=== PATIENT | female | born 1950 | race Caucasian/White ===

== ENCOUNTER → 2018-08-26 | Outpatient (CLI) | payer MEDICARE ==
--- NOTE | 2018-08-30 08:39 | MM ---
Reason for exam: screening (asymptomatic). Last mammogram was performed 3 years and 6 months ago. History: Patient is postmenopausal. Family history of breast cancer in mother at age 76. Took estrogen for 1 year 6 months beginning at age 45. Took progesterone for 1 year 6 months beginning at age 45. Physical Findings: A clinical breast exam by your physician is recommended on an annual basis and results should be correlated with mammographic findings. MG 3D Screening Mammo W/Cad Bilateral CC and MLO view(s) were taken. Prior study comparison: March 11, 2015, bilateral MG screening mammo w CAD. March 08, 2014, bilateral MG screening mammo w CAD. There are scattered fibroglandular densities. No significant changes when compared with prior studies. ASSESSMENT: Benign, BI-RAD 2 RECOMMENDATION: Routine screening mammogram of both breasts in 1 year.
== END | disposition home or self-care (01) ==
LOC: RADMAMWWP 13:31
PROVIDERS: ATTEND Family Medicine
DX: Z12.31 Encounter for screening mammogram for malignant neoplasm of breast (principal)
CPT/HCPCS: 77063; 77067

== ENCOUNTER → 2023-06-21 | Outpatient (CLI) | payer MEDICARE ==
--- NOTE | 2023-06-22 09:49 | MM ---
Reason for Exam: Screening (asymptomatic). Last mammogram was performed 1 year(s) and 1 month(s) ago. Patient History: Menarche at age 12. First Full-Term at age 19. Postmenopausal. Estrogen for 1 year, 6 months, from age 45 until age 47. Progesterone for 1 year, 6 months, from age 45 until age 47. Mother had breast cancer, age 76. Risk Values: Lia 5 year model risk: 3.3%. NCI Lifetime model risk: 7.9%. Prior Study Comparison: 03/08/2014 Bilateral Screening Mammogram, [facility]. 03/11/2015 Bilateral Screening Mammogram, [facility]. 08/26/2018 Bilateral Screening Mammogram, [facility]. 05/11/2022 Bilateral Screening Mammogram, [facility]. Tissue Density: The breast tissue is almost entirely fat. Findings: Analyzed By CAD. There is no suspicious group of microcalcifications or new suspicious mass. Overall Assessment: Negative, BI-RAD 1 Management: Screening Mammogram of both breasts in [address] [facility] will attempt to contact patient to return for supplemental views and ultrasound if indicated. Patient should continue monthly self-breast exams. A clinical breast exam by your physician is recommended on an annual basis. This exam should not preclude additional follow-up of suspicious palpable abnormalities. Note on Lia scores and lifetime risk: 1. A Lia score greater than 3% is considered moderate risk. If this is the case, consider specialist referral to assess eligibility for a risk reducing agent. 2. If overall lifetime risk for the development of breast cancer is 20% or higher, the patient may qualify for future screening with alternating mammogram and breast MRI. Electronically signed and approved by: Marcos Fylnn DO
== END | disposition home or self-care (01) ==
LOC: RADMAMWWP 15:09
PROVIDERS: ATTEND Family Medicine
DX: Z12.31 Encounter for screening mammogram for malignant neoplasm of breast (principal); Z78.0 Asymptomatic menopausal state; Z80.3 Family history of malignant neoplasm of breast
CPT/HCPCS: 77067

== ENCOUNTER → 2024-02-28 | Outpatient (CLI) | payer MEDICARE | END | disposition home or self-care (01) | LOC: LABWHC1 15:34 | PROVIDERS: ATTEND Obstetrics & Gynecology Obstetrics | DX: N83.209 Unspecified ovarian cyst, unspecified side (principal) | CPT/HCPCS: 36415 ==

== ENCOUNTER → 2024-06-05 | Outpatient (CLI) | payer MEDICARE ==
[2024-06-05 19:04] LABS: Basophils # (A) 0.06 X 10*3/uL (0.00-0.10); Basophils % (A) 0.8 %; Eosinophils # (A) 0.24 X 10*3/uL (0.04-0.35); HCT 44.9 % (37.2-46.3); HGB 15.8 g/dL (12.0-15.0); Lymphocytes # (A) 2.61 X 10*3/uL (0.90-5.00); Lymphocytes % (A) 33.1 %; MCH 35.6 pg (27.0-32.0); MCHC 35.2 g/dL (32.0-37.0); MCV 101.1 FL (80.0-97.0); Mean Platelet Volume 8.5 FL (9.5-12.2); Monocytes # (A) 0.57 X 10*3/uL (0.20-1.00); Monocytes % (A) 7.2 %; NRBC Per 100 WBC 0 X 10*3/uL (0.00-0.01); Neutrophils # (A) 4.38 X 10*3/uL (1.80-7.70); Neutrophils % (A) 55.5 %; Platelet Count 252 X 10*3/uL (140-440); RBC 4.44 X 10*6/uL (4.10-5.20); RDW 12.8 % (11.5-14.5); WBC 7.89 X 10*3/uL (4.50-10.00)
[2024-06-05 19:35] LABS: Blood Urea Nitrogen 6.8 mg/dL (9.0-27.0); Carbon Dioxide 23.9 mmol/L (21.6-31.8); Chloride 102 mmol/L (96-109); Glucose 99 mg/dL (70-110); Potassium 3.8 mmol/L (3.5-5.5); Sodium 137 mmol/L (135-145)
== END | disposition home or self-care (01) ==
LOC: LABPAT 14:42
PROVIDERS: ATTEND Obstetrics & Gynecology Obstetrics
DX: Z01.818 Encounter for other preprocedural examination (principal); I10 Essential (primary) hypertension; N83.209 Unspecified ovarian cyst, unspecified side; Z15.01 Genetic susceptibility to malignant neoplasm of breast
CPT/HCPCS: 80051; 82565; 82947; 84520; 85025; 86850; 86900; 86901; 87086

== ENCOUNTER 2024-06-15 05:33 | Day surgery (SDC) | payer MEDICARE ==
[2024-06-15] MEDS ORDERED: LIDOCAINE 1% (10MG/ML) FOR IV START INTRADERMA PRN (06:13)
[2024-06-15] MEDS: IV FLUID CONTINUATION 1,000 ML IV ONE (06:25)
[2024-06-15] MEDS: LACTATED RINGERS 1,000 ML IV SCH (06:40)
[2024-06-15] MEDS: ONDANSETRON 4 MG/2 ML VIAL IVP ONE (06:48)
[2024-06-15] MEDS: DEXAMETHASONE SOD PHOSPHATE 4 MG/ML 1 ML VIAL IV ONE (06:48)
[2024-06-15] MEDS: MIDAZOLAM 2 MG/2 ML VIAL IV ONE (06:51)
[2024-06-15] MEDS ORDERED: droPERidol 5 MG/2 ML VIAL IVP PRN (07:00)
[2024-06-15] MEDS ORDERED: MIDAZOLAM 2 MG/2 ML VIAL ONE (07:25)
[2024-06-15] MEDS ORDERED: NEOSTIGMINE 1 MG/ML 10 ML VIAL ONE (07:25)
[2024-06-15] MEDS ORDERED: SUCCINYLCHOLINE CHLORIDE 200 MG/10 ML VIAL IV ONE (07:25)
[2024-06-15] MEDS ORDERED: GLYCOPYRROLATE 0.2 MG/ML 2 ML VIAL ONE (07:25)
[2024-06-15] MEDS ORDERED: LIDOCAINE 1% INJ 10MG/ML (20 ML MDV) ONE (07:25)
[2024-06-15] MEDS ORDERED: ROCURONIUM 10 MG/ML (5 ML VIAL) IV ONE (07:25)
[2024-06-15] MEDS ORDERED: PROPOFOL 10 MG/ML 20 ML VIAL IV ONE (07:25)
[2024-06-15] MEDS ORDERED: fentaNYL (PF) 50 MCG/ML 2 ML AMP ONE (07:25)
--- NOTE | 2024-06-15 07:27 | P.ANPRN ---
Procedure Note - Anesthesia - Epidural/Spinal Spinal Time Out Performed: Yes Date of Procedure: 06/15/24 Procedure Start Time: 06:51 Procedure Stop Time: 06:56 Location of Patient: PreOp Indication: Acute Post-Operative Pain, Analgesia, Requested by Surgeon Sedation Type: Sedate with meaningful contact maintained Preparation: Sterile Prep Position: Sitting Catheter: None Needle Guage: 22 Narrative: Duramorph 0.3mg. L3-4 Level Blood Aspirated: No Pain Paresthesia on Injection Noted: No Events: Uneventful and Well Tolerated
[2024-06-15] MEDS: BUPIVACAINE (PF) 0.25% 30 ML VIAL SQ ONE ×2 (08:42)
[2024-06-15] MEDS: LACTATED RINGERS 1,000 ML IV ONE (09:11)
[2024-06-15] MEDS ORDERED: SIMETHICONE 80 MG CHEWABLE PO PRN (10:24)
[2024-06-15] MEDS: HYDROmorphone 0.5 MG/0.5 ML SYRINGE IVP PRN (10:29)
--- NOTE | 2024-06-15 10:34 | P.OP ---
Date of Procedure: 06/15/24 Preoperative Diagnosis: Large right ovarian cyst, BRCA2 carrier Postoperative Diagnosis: Same Procedure(s) Performed: Buttock assist vaginal hysterectomy, bilateral salpingo-oophorectomy, diagnostic cystoscopy, laparoscopic lysis of adhesions Anesthesia: ARIANNEA Adventure Therapist #1: Poppy Marquez Adventure Therapist #2: Batool Jewell Estimated Blood Loss (ml): 10 IV fluids (ml): 1,000 Urine output (ml): 125 Pathology: other (Uterus bilateral fallopian tubes, bilateral ovaries, cervix) Condition: stable Disposition: PACU Indications for Procedure: Enlarged right ovary, vascular appearance, negative ova 1 testing. Known BRCA2 carrier with desire for definitive/risk reducing treatment. Operative Findings: Small appearing uterus, normal-appearing left ovary consistent with menopause, right ovary with 2 simple appearing cyst. Description of Procedure: Patient was taken back to the operating room where general anesthesia was obtained without difficulty by the anesthesia department. She was prepped and draped in the normal sterile fashion in the dorsolithotomy position. A Guillory catheter was placed under sterile technique. A weighted speculum space in the posterior vaginal vault and the anterior lip of the cervix was visualized and grasped with a single-tooth tenaculum. The endocervical canal was then serially dilated and a [employer] uterine manipulator was advanced into the uterus as a means to manipulate the uterus throughout the procedure. The balloon was insufflated with air at the cervical cap was placed snugly against the cervix and all instru ments were removed from the patient's vaginal vault. Attention then turned to the patient's abdomen where approximately 1 fingerbreadth above the umbilicus a small skin incision is made. Through this incision the Veress needle was placed. Once the Veress needle was deemed to be in the appropriate position with a drop of CO2 pressure CO2 insufflation was allowed to occur. At this time an 8 mm trocar and sleeve with the laparoscope in place was placed through the skin incision and toward the pneumoperitoneum. Adhesions were appreciated from the prior appendectomy she had as a child. Additional port sites are placed at 10 cm lateral and 3 cm inferiorly midline port these are operative ports to the da Abigail and placed under direct visualization. The laparoscopic scissors were placed in the left lateral trocar, the filmy omental adhesions were taken down sharply with the laparoscopic scissors. Hemostasis was a appreciated throughout. Once the adhesions were taken down and visualization was adequate the da Abigail was docked in the usual fashion. The right operative arm the monopolar scissors, the left operative arm the bipolar forceps. Attention then turned to the patient's left infundibulopelvic ligament which was elevated coagulated distally approximately and divided. This continued through the broad and toward the round which was visualized coagulated and transected. The bladder flap from the left was then created using sharp and blunt dissection. The right adnexa was elevated simple appearing thin-walled cysts were appreciated, the infundibulopelvic ligament was elevated coagulated and transected. This continued through the broad ligament toward the round which was coagulated and transected. The bladder flap from the right was created using sharp and blunt dissection. The a centimeter to the uterine artery from the right was visualized coagulated and transected. Hemostasis was appreciated. This was then repeated on the opposite side. At this time the only remaining attachment was a vaginal attachment therefore colpotomy incision was made in a circumferential fashion. The uterus bilateral fallopian tubes bilateral ovaries and right ovarian cyst were delivered through the vaginal opening. The pelvis was then irrigated and hemostasis was noted along the vaginal cuff. The vaginal cuff is closed with 0 Vicryl in a [id number] fashion. 4 sutures were used to obtain closure. The cuff was inspected found to be hemostatic. Both ureters were noted be pulsating in normal fashion nondilated during the procedure. Guillory catheter had been draining clear yellow urine throughout. All instruments were then removed from the patient's abdomen. The da Abigail was undocked in the usual fashion. Attention was then turned to the patient's Guillory catheter once again noting clear yellow urine, it was removed without difficulty and a cystoscopy was performed. The cystoscope was placed through the urethra and toward the bladder bladder bubble was appreciated. Complete survey of the bladder revealed normal bladder mucosa. Both ureteral orifices were noted to be spilling clear yellow urine. Cystoscope was removed and the Guillory catheter was replaced. The vaginal mucosa was appreciated and found to be hemostatic some atrophic changes were noted upon placement of the [employer] uterine macular at the beginning of the case. Attention was then turned to the patient's abdomen over the skin incisions were closed with 4-0 Vicryl in a subcuticular fashion. Steri-Strips and sterile dressings were applied. All counts were noted be correct x 2. Patient tolerated procedure well and was taken the recovery room awake in stable condition.
[2024-06-15] MEDS ORDERED: ACETAMINOPHEN TAB 500 MG TAB PO SCH (12:00)
[2024-06-15] MEDS: IBUPROFEN 800 MG TAB PO SCH (13:17)
[2024-06-15] MEDS: ACETAMINOPHEN TAB 500 MG TAB PO SCH (16:25)
[2024-06-15] MEDS: LACTATED RINGERS 500 ML IV SCH (19:31)
[2024-06-15] MEDS: SENNOSIDES-DOCUSATE SODIUM 1 EACH TAB PO SCH (20:31)
[2024-06-16 00:16] VITALS: RESP 16
[2024-06-16] MEDS: METOPROLOL SUCCINATE (ER) 50 MG TAB.ER.24H PO SCH (01:01)
[2024-06-16 05:24] LABS: Basophils % (A) 0 %; Eosinophils # (A) 0.1 k/uL (0-0.7); Eosinophils % (A) 2 %; HCT 36.9 % (34.0-46.0); HGB 12.8 gm/dL (11.4-16.0); Lymphocytes # (A) 2.9 k/uL (1.0-4.8); Lymphocytes % (A) 34 %; MCH 37.5 pg (25.0-35.0); MCHC 34.8 g/dL (31.0-37.0); MCV 107.7 fL (80.0-100.0); Macrocytosis Moderate; Mean Platelet Volume 6.6; Monocytes # (A) 0.6 k/uL (0-1.0); Monocytes % (A) 7 %; Neutrophils # (A) 4.9 k/uL (1.3-7.7); Neutrophils % (A) 57 %; Platelet Count 196 k/uL (150-450); RBC 3.43 m/uL (3.80-5.40); RDW 12.6 % (11.5-15.5); WBC 8.7 k/uL (3.8-10.6)
[2024-06-16] MEDS: FAMOTIDINE 20 MG/2 ML VIAL IV STA (06:53)
[2024-06-16] MEDS: lisinopriL 20 MG TAB PO SCH (07:41)
[2024-06-16] MEDS: ONDANSETRON 4 MG/2 ML VIAL IVP PRN (09:08)
--- NOTE | 2024-06-16 09:19 | P.PN ---
Progress Note - Text 06/16/24 634am 74-year-old female status post vaginal hysterectomy. Patient received spinal Duramorph for postop pain control, she has a VAS of 1 she does have complaints of nausea and pruritus. She was complaining of acid reflux and I ordered IV Pepcid for her
--- NOTE | 2024-06-16 11:01 | P.DS ---
Providers Date of admission: 06/15/2024 Expected date of discharge: 06/16/24 Attending physician: Poppy Marquez Primary care physician: Renato Ward - Discharge Diagnosis(es) (1) BRCA2 gene mutation positive Current Visit: Yes Status: Acute (2) Right ovarian cyst Current Visit: Yes Status: Acute (3) Status post laparoscopic hysterectomy Current Visit: Yes Status: Acute Hospital Course: 74-year-old female that presented to the hospital yesterday for scheduled robotic assisted vaginal hysterectomy with bilateral salpingo-oophorectomy, diagnostic cystoscopy. For full details of the patient please see the dictated history and physical. Patient underwent procedure as scheduled without complication. For full details in the procedure please see the dictated operative report. Patient's postoperative course has been uneventful. In this postoperative day #1 she is ambulating and voiding without difficulty. She is struggling with some nausea this morning and did receive Zofran. She denies vaginal bleeding. She states her pain is well-controlled. She denies concerns. She would like discharge home. Patient Condition at Discharge: Good Plan - Discharge Summary Discharge Rx Participant: Yes New Discharge Prescriptions: No Action Metoprolol Succinate (ER) [Toprol Xl] 50 mg PO HS Primidone [Mysoline] 50 mg PO HS Multivitamins, Thera [Multivitamin (formulary)] 1 tab PO DAILY Lovastatin [Mevacor] 40 mg PO HS Famotidine [Pepcid] 20 mg PO HS Escitalopram [Lexapro] 20 mg PO DAILY Aspirin 81 mg PO DAILY Cholecalciferol [Vitamin D3 (125 Mcg = 5000 Iu)] 125 mcg PO DAILY lisinopriL [Zestril] 40 mg PO DAILY Discharge Medication List Aspirin 81 mg PO DAILY 06/13/24 [History] Cholecalciferol [Vitamin D3 (125 Mcg = 5000 Iu)] 125 mcg PO DAILY 06/13/24 [History] Escitalopram [Lexapro] 20 mg PO DAILY 06/13/24 [History] Famotidine [Pepcid] 20 mg PO HS 06/13/24 [History] Lovastatin [Mevacor] 40 mg PO HS 06/13/24 [History] Metoprolol Succinate (ER) [Toprol Xl] 50 mg PO HS 06/13/24 [History] Multivitamins, Thera [Multivitamin (formulary)] 1 tab PO DAILY 06/13/24 [History] Primidone [Mysoline] 50 mg PO HS 06/13/24 [History] lisinopriL [Zestril] 40 mg PO DAILY 06/13/24 [History] Follow up Appointment(s)/Referral(s): Poppy Marquez DO [Doctor of Osteopathic Medicine] - 2 Weeks Patient Instructions/Handouts: Laparoscopic Hysterectomy (DC), Laparoscopic Hysterectomy (GEN) Activity/Diet/Wound Care/Special Instructions: [id number] ibuprofen and Tylenol as needed for pain. Ibuprofen 600 mg 3 tablets every 6 hours as needed for pain. No tub baths or intercourse until 8 to 10 weeks postoperatively. Routine postoperative appointment in 2 weeks. Should she have any concerns prior to this appointment she is urged to call the office and be seen. It is common to have vaginal spotting post hysterectomy. Discharge Disposition: HOME SELF-CARE
[2024-06-16 12:05] VITALS: BP 151/84; PULSE 58; TEMP 98.1
[2024-06-16] MEDS ORDERED: METOPROLOL SUCCINATE (ER) 50 MG TAB.ER.24H PO SCH (21:00)
== END 2024-06-16 13:00 | disposition home or self-care (01) ==
LOC: OR 05:33 → 4FBP 09:26 → OR 06-16 13:00
PROVIDERS: ATTEND Obstetrics & Gynecology Obstetrics
DX: D27.0 Benign neoplasm of right ovary (principal); N84.0 Polyp of corpus uteri; N80.03 Adenomyosis of the uterus; N88.8 Other specified noninflammatory disorders of cervix uteri; N83.8 Other noninflammatory disorders of ovary, fallopian tube and broad ligament; G89.18 Other acute postprocedural pain; N95.1 Menopausal and female climacteric states; I47.19 Other supraventricular tachycardia; I10 Essential (primary) hypertension; E78.2 Mixed hyperlipidemia; K21.9 Gastro-esophageal reflux disease without esophagitis; Z15.01 Genetic susceptibility to malignant neoplasm of breast; Z15.09 Genetic susceptibility to other malignant neoplasm; R11.0 Nausea; L29.9 Pruritus, unspecified; F17.210 Nicotine dependence, cigarettes, uncomplicated; Z79.82 Long term (current) use of aspirin; Z79.899 Other long term (current) drug therapy
CPT/HCPCS: 58552; S2900; 85025; 88307